=== PATIENT | male | born 1955 | race Caucasian/White ===

== ENCOUNTER 2021-04-22 08:10 | Inpatient (IN) ==
[2021-04-22 12:52] LABS: Calcium 8.6 mg/dL (8.6-10.3); Magnesium 2.2 mg/dL (1.9-2.7)
[2021-04-22 12:53] LABS: Potassium 5.5 mmol/L (3.5-5.0)
[2021-04-22] MEDS ORDERED: NS 0.9% 1000 ml BAG 1,000 ML IV SCH ×2 (14:15→16:45)
[2021-04-22 16:11] LABS: Rapid COVID-19 Molecular Undetected (Undetected)
[2021-04-22] MEDS ORDERED: Ondansetron ODT 4 mg TAB 4 MG TAB PO PRN (16:56)
[2021-04-22 17:18] LABS: ABS Lymphocytes 0.3 10^3/ul (1.0-4.8); ABS Monocytes 0.7 10^3/ul (0-0.8); ABS Neutrophils 21.3 10^3/ul (1.5-7.7); Hematocrit 46 % (42-52); Hemoglobin 15.7 g/dL (14.0-18.0); Lymphocyte % 1.3 %; Mean Corpuscular HGB Conc 35 g/dL (31-36); Mean Corpuscular Hemoglobin 37 pg (27-31); Mean Corpuscular Volume 107 fL (80-94); Nucleated Red Blood Cells % 0.1; Platelet Count 222 10^3/uL (150-450); Red Blood Count 4.25 10^6 /uL (4.18-5.48); Red Cell Distribution Width 15 % (10-15); White Blood Count 22.4 10^3/uL (3.5-10.8)
[2021-04-22] MEDS: Enoxaparin 30 MG/0.3 ML SYR SUBCUT SCH (20:01)
[2021-04-22 20:31] LABS: Potassium 6.2 mmol/L (3.5-5.0)
[2021-04-22] MEDS: SODIUM ZIRCONIUM CYCLOSILICATE 10 GM PACKET PO SCH (21:24)
[2021-04-23 08:05] LABS: ABS Lymphocytes 0.5 10^3/ul (1.0-4.8); ABS Monocytes 1.5 10^3/ul (0-0.8); ABS Neutrophils 21.3 10^3/ul (1.5-7.7); Hematocrit 50 % (42-52); Hemoglobin 16.9 g/dL (14.0-18.0); Lymphocyte % 2.1 %; Mean Corpuscular HGB Conc 34 g/dL (31-36); Mean Corpuscular Hemoglobin 36 pg (27-31); Mean Corpuscular Volume 108 fL (80-94); Mean Platelet Volume 8.3 fL (7.4-10.4); Platelet Count 247 10^3/uL (150-450); Red Blood Count 4.64 10^6 /uL (4.18-5.48); Red Cell Distribution Width 15 % (10-15); White Blood Count 23.3 10^3/uL (3.5-10.8)
[2021-04-23 08:07] LABS: Albumin 2.6 g/dL (3.2-5.2); Albumin/Globulin Ratio 0.9 (1-3); Calcium 8.2 mg/dL (8.6-10.3); Magnesium 2.5 mg/dL (1.9-2.7); Total Bilirubin 0.3 mg/dL (0.2-1.0); Total Protein 5.6 g/dL (6.4-8.9)
[2021-04-23 08:09] LABS: Calcium 8.2 mg/dL (8.6-10.3)
[2021-04-23 08:16] LABS: Potassium 6.2 mmol/L (3.5-5.0)
[2021-04-23 08:17] LABS: Potassium 6.2 mmol/L (3.5-5.0)
[2021-04-23] MEDS ORDERED: NS 0.9% 500 ml BAG 500 ML IV ONE ×2 (08:33→14:20)
[2021-04-23] MEDS: SODIUM ZIRCONIUM CYCLOSILICATE 10 GM PACKET PO SCH ×2 (09:13→18:05)
[2021-04-23] MEDS ORDERED: Cefepime 2 GM in Dextrose 2 GM/50 ML BAG IV ONE (10:55)
[2021-04-23] MEDS ORDERED: metroNIDAZOLE IV 500 MG/100ML 500 MG/100 ML BAG IVPB SCH (11:00)
[2021-04-23] MEDS ORDERED: Heparin 1,000 UNIT/ML 10 ml (10,000 UNITS) CATHLAB/DIALYSIS DIALYSIS ONE (11:30)
[2021-04-23] MEDS ORDERED: Heparin *DIALYSIS* ONLY 1,000 UNITS/ML VIAL DIALYSIS ONE (11:40)
[2021-04-23] MEDS ORDERED: Lidocaine 1% VIAL 10 MG/ML VIAL ONE (12:14)
[2021-04-23] MEDS ORDERED: Heparin 2 UNITS/ML 1000 mls 0 ML IV ONE (12:16)
[2021-04-23 14:09] LABS: Hepatitis B Surface Antigen Nonreactive (Nonreactive)
[2021-04-23] MEDS: Heparin 1,000 UNIT/ML 10 ml (10,000 UNITS) CATHLAB/DIALYSIS DIALYSIS ONE ×5 (14:20→17:16)
[2021-04-23 14:27] LABS: Hepatitis B Surface Ab Not Immune (Immune)
[2021-04-23] MEDS ORDERED: Albumin Human 25% 25 GM/100 ML IV ONE (16:15)
[2021-04-23 16:40] LABS: TSH Ultra Thyroid Stim Horm 2.82 mcIU/mL (0.34-5.60)
[2021-04-23] MEDS ORDERED: NS 0.9% 500 ML @ Wide Open(Bolus) 500ml IV ONE ×2 (20:00→21:28)
[2021-04-23] MEDS ORDERED: Piperacillin/Tazobac ADVAN 3.375 GM in NS 0.9% 100 ml BAG 100 ML IV ONE (22:21)
[2021-04-23] MEDS ORDERED: Norepinephrine 16MCG/ML IVPRE 4,000 MCG/250 ML BAG IV ONE (22:28)
[2021-04-23 22:34] LABS: ABS Lymphocytes 0.7 10^3/ul (1.0-4.8); ABS Monocytes 2.2 10^3/ul (0-0.8); ABS Neutrophils 28.3 10^3/ul (1.5-7.7); Hematocrit 49 % (42-52); Hemoglobin 16.7 g/dL (14.0-18.0); Lymphocyte % 2.1 %; Mean Corpuscular HGB Conc 34 g/dL (31-36); Mean Corpuscular Hemoglobin 36 pg (27-31); Mean Corpuscular Volume 107 fL (80-94); Mean Platelet Volume 8.4 fL (7.4-10.4); Platelet Count 213 10^3/uL (150-450); Red Cell Distribution Width 15 % (10-15); White Blood Count 31.1 10^3/uL (3.5-10.8)
[2021-04-23 22:51] LABS: Albumin 2.8 g/dL (3.2-5.2); Albumin/Globulin Ratio 1.2 (1-3); Calcium 7.9 mg/dL (8.6-10.3); Globulin 2.3 g/dL (2-4); Total Bilirubin 0.4 mg/dL (0.2-1.0); Total Protein 5.1 g/dL (6.4-8.9)
[2021-04-23 22:52] LABS: Potassium 5.7 mmol/L (3.5-5.0)
[2021-04-23] MEDS: Enoxaparin 30 MG/0.3 ML SYR SUBCUT SCH (22:58)
[2021-04-23] MEDS ORDERED: Norepinephrine 16MCG/ML IVPRE 4,000 MCG/250 ML BAG IV SCH (23:00)
[2021-04-23] MEDS ORDERED: Zosyn per Pharmacy NOTE FOLLOW UP SCH (23:00)
[2021-04-23] MEDS ORDERED: Vancomycin SOL ORALSYR 50 MG/ML ML PO SCH (23:45)
[2021-04-24 01:25] LABS: C Reactive Protein 37.22 mg/L (<8.01)
[2021-04-24] MEDS ORDERED: NS 0.9% 100 ml BAG 100 ML ONE ×2 (02:13→03:23)
[2021-04-24] MEDS: metroNIDAZOLE IV 500 MG/100ML 500 MG/100 ML BAG IVPB SCH ×3 (02:20→16:53)
[2021-04-24] MEDS: Pantoprazole VIAL 40 MG VIAL IV SCH ×2 (02:20→08:50)
[2021-04-24] MEDS ORDERED: Sodium Polystyrene ORAL.SUSP 15 GM/60 ML BTL PO ONE (02:41)
[2021-04-24] MEDS: ZOSYN 3.375 GM Q8H per EXTENDED INFUSION IV SCH ×3 (03:48→15:30)
[2021-04-24] MEDS: Albuterol HFA INHALER 8 gm MDI INH PRN ×2 (04:46→23:38)
[2021-04-24 04:50] LABS: ABS Lymphocytes 0.5 10^3/ul (1.0-4.8); ABS Monocytes 2.4 10^3/ul (0-0.8); ABS Neutrophils 32.8 10^3/ul (1.5-7.7); Hematocrit 52 % (42-52); Hemoglobin 17.4 g/dL (14.0-18.0); Lymphocyte % 1.5 %; Mean Corpuscular HGB Conc 34 g/dL (31-36); Mean Corpuscular Hemoglobin 36 pg (27-31); Mean Corpuscular Volume 107 fL (80-94); Mean Platelet Volume 8.5 fL (7.4-10.4); Platelet Count 191 10^3/uL (150-450); Red Blood Count 4.83 10^6 /uL (4.18-5.48); Red Cell Distribution Width 15 % (10-15); White Blood Count 35.7 10^3/uL (3.5-10.8)
[2021-04-24] MEDS ORDERED: Vancomycin- *ENEMA* PR 500MG PR SCH (05:00)
[2021-04-24 05:05] LABS: Calcium 7.6 mg/dL (8.6-10.3)
[2021-04-24 05:24] LABS: Phosphorus 8.9 mg/dL (2.5-5.0); Potassium 5.9 mmol/L (3.5-5.0)
[2021-04-24] MEDS ORDERED: SODIUM ZIRCONIUM CYCLOSILICATE 10 GM PACKET PO SCH (06:00)
[2021-04-24] MEDS: Vancomycin SOL ORALSYR 50 MG/ML ML PO SCH ×4 (06:08→19:35)
[2021-04-24] MEDS: Mometasone/Formoter 200/5 MDI INH SCH ×2 (07:36→19:02)
[2021-04-24] MEDS: Norepinephrine 16MCG/ML IVPRE 4,000 MCG/250 ML BAG IV SCH ×5 (09:03→23:09)
[2021-04-24 09:44] LABS: Calcium 7.7 mg/dL (8.6-10.3); Chloride 100 mmol/L (101-111); Sodium 129 mmol/L (135-145)
[2021-04-24 09:46] LABS: Anion Gap 17 mmol/L (2-11); CO2 Carbon Dioxide 12 mmol/L (22-32)
[2021-04-24] MEDS ORDERED: Sodium Bicarbonate 8.4% SYR 50 ml SYRINGE ONE (09:48)
[2021-04-24 09:50] LABS: Blood Urea Nitrogen 60 mg/dL (6-24); Glucose 230 mg/dL (70-100)
[2021-04-24] MEDS ORDERED: Sodium Bicarbonate 8.4% SYR 50 ml SYRINGE IV ONE (10:37)
[2021-04-24 10:55] LABS: Calcium 7.6 mg/dL (8.6-10.3)
[2021-04-24] MEDS ORDERED: Heparin *DIALYSIS* ONLY 1,000 UNITS/ML VIAL DIALYSIS ONE (11:01)
[2021-04-24] MEDS ORDERED: Heparin 1,000 UNIT/ML 10 ml (10,000 UNITS) CATHLAB/DIALYSIS DIALYSIS ONE (11:01)
[2021-04-24 11:03] LABS: Potassium 5.9 mmol/L (3.5-5.0)
[2021-04-24 11:15] LABS: Activated Partial Thrombo Time 29.9 seconds (26.0-38.0); INR 1.13 (0.86-1.15)
[2021-04-24] MEDS: Heparin 1,000 UNIT/ML 10 ml (10,000 UNITS) CATHLAB/DIALYSIS DIALYSIS ONE ×4 (11:42→15:03)
[2021-04-24] MEDS ORDERED: Albumin Human 25% 12.5 GM/50 ML BTL IV ONE (11:55)
[2021-04-24] MEDS ORDERED: Albumin Human 25% 25 GM/100 ML IV PRN (12:15)
[2021-04-24] MEDS ORDERED: Albumin Human 5% 12.5 GM/250 ML BTL IV ONE (12:27)
[2021-04-24] MEDS: SODIUM ZIRCONIUM CYCLOSILICATE 10 GM PACKET PO SCH (15:29)
[2021-04-24] MEDS ORDERED: NS 0.9% 1000 ML/HR X 1 BAG (TOTAL 1000 ML) IV ONE (16:00)
[2021-04-24 17:27] LABS: Calcium 7.6 mg/dL (8.6-10.3); Potassium 4.5 mmol/L (3.5-5.0)
[2021-04-24] MEDS: Enoxaparin 30 MG/0.3 ML SYR SUBCUT SCH (19:34)
[2021-04-24] MEDS ORDERED: Albuterol/Ipratropium NEB.SOL (2.5/0.5 MG) 3 ML NEB.SOLN INH PRN (23:48)
[2021-04-25] MEDS: metroNIDAZOLE IV 500 MG/100ML 500 MG/100 ML BAG IVPB SCH ×2 (00:29→08:43)
[2021-04-25] MEDS ORDERED: LORazepam 2 mg VIAL 1 ml IV PUSH ONE ×4 (00:41→15:00)
[2021-04-25] MEDS ORDERED: Lorazepam PYXIS KEY PRN ×3 (00:41→07:11)
[2021-04-25] MEDS ORDERED: Lorazepam PYXIS KEY ONE (02:00)
[2021-04-25] MEDS: Vancomycin SOL ORALSYR 50 MG/ML ML PO SCH ×3 (02:19→13:26)
[2021-04-25] MEDS: ZOSYN 3.375 GM Q8H per EXTENDED INFUSION IV SCH (02:20)
[2021-04-25] MEDS: Norepinephrine 16MCG/ML IVPRE 4,000 MCG/250 ML BAG IV SCH ×3 (02:21→10:09)
[2021-04-25 03:33] LABS: INR 1.54 (0.86-1.15)
[2021-04-25 03:39] LABS: Hematocrit 51 % (42-52); Hemoglobin 17.3 g/dL (14.0-18.0); Mean Corpuscular HGB Conc 34 g/dL (31-36); Mean Corpuscular Hemoglobin 36 pg (27-31); Mean Corpuscular Volume 108 fL (80-94); Mean Platelet Volume 8.9 fL (7.4-10.4); Platelet Count 159 10^3/uL (150-450); Red Blood Count 4.78 10^6 /uL (4.18-5.48); Red Cell Distribution Width 15 % (10-15); White Blood Count 42.1 10^3/uL (3.5-10.8)
[2021-04-25 03:44] LABS: Albumin 2.6 g/dL (3.2-5.2); Calcium 7.5 mg/dL (8.6-10.3); Chloride 102 mmol/L (101-111); Magnesium 2.3 mg/dL (1.9-2.7); Sodium 131 mmol/L (135-145)
[2021-04-25 03:50] LABS: ALT 20 U/L (7-52); Albumin/Globulin Ratio 1.3 (1-3); Alkaline Phosphatase 59 U/L (35-149); Blood Urea Nitrogen 47 mg/dL (6-24); Glucose 204 mg/dL (70-100); Total Protein 4.6 g/dL (6.4-8.9)
[2021-04-25 04:04] LABS: Anion Gap 15 mmol/L (2-11); CO2 Carbon Dioxide 14 mmol/L (22-32)
[2021-04-25] MEDS ORDERED: Sodium Bicarbonate 8.4% SYR 50 ml SYRINGE IV ONE ×2 (04:07→06:05)
[2021-04-25] MEDS ORDERED: Levothyroxine 100 MCG/5 ML VIAL IV SCH (06:00)
[2021-04-25] MEDS: SODIUM ZIRCONIUM CYCLOSILICATE 10 GM PACKET PO SCH (07:15)
[2021-04-25] MEDS: Pantoprazole VIAL 40 MG VIAL IV SCH (07:44)
[2021-04-25] MEDS: Albuterol HFA INHALER 8 gm MDI INH PRN (07:50)
[2021-04-25] MEDS: Mometasone/Formoter 200/5 MDI INH SCH (07:51)
[2021-04-25] MEDS ORDERED: Lactated Ringers 500 ml BAG 500 ML IV ONE (07:52)
[2021-04-25] MEDS ORDERED: Albumin Human 5% 12.5 GM/250 ML BTL IV ONE (07:54)
[2021-04-25] MEDS ORDERED: Morphine 2 MG/ML SYRINGE IV ONE (08:22)
[2021-04-25] MEDS ORDERED: Morphine 2 MG/ML SYRINGE ONE (08:25)
[2021-04-25 10:14] LABS: Sodium, Whole Blood 128 mmol/L (136-145)
[2021-04-25] MEDS ORDERED: Morphine PCA* 150 MG in PREMIX PCA SCH ×2 (14:00→15:00)
[2021-04-25] MEDS ORDERED: Morphine 10 MG/ML VIAL (1 ml) IV ONE (15:00)
[2021-04-25 21:57] VITALS: BP 57/48
== END 2021-04-25 19:45 | disposition expired | DRG 871 ==
LOC: CHOA 08:10 → MEDTELE 16:39 → ICU 04-23 21:44
PROVIDERS: ADMIT Internal Medicine Medical Oncology; ATTEND Internal Medicine Medical Oncology